=== PATIENT | female | born 1995 | race Caucasian/White ===

== ENCOUNTER 2024-10-06 12:56 | Emergency (ER) | payer SELFPAY ==
[2024-10-06 13:50] LABS: Specific Gravity 1.025 (1.005-1.030)
[2024-10-06 13:52] LABS: Specific Gravity 1.025 (1.005-1.030); Sqamous Epithelial <5 /HPF (None Seen); Urine Bacteria <20 /HPF (<20); Urine Bilirubin NEGATIVE (Negative); Urine Blood Negative (Negative); Urine Clarity Turbid (Clear); Urine Color Yellow (Yellow); Urine Culture Reflex Order NOT NEEDED; Urine Glucose NEGATIVE (Negative); Urine Ketones NEGATIVE (Negative); Urine Microscopic Reflex YN ORDER UMIC; Urine Mucus 1+ /HPF (None Seen); Urine Nitrite NEGATIVE (Negative); Urine Protein TRACE (Negative); Urine RBC <5 /HPF (None Seen); Urine Urobilinogen Normal (Normal); Urine WBC <5 /HPF (<5)
[2024-10-06 14:13] LABS: Absolute Basophils 0.1 K/uL (0-0.5); Absolute Eosinophils 0.1 K/uL (0-0.5); Absolute Lymphocytes (CBC) 1.6 K/uL (0.7-4.9); Absolute Monocytes 0.4 K/uL (0.1-1.3); Basophils % 0.6 % (0-1.3); Eosinophils % 1.3 % (0-4.4); Hematocrit 38.3 % (36.0-45.0); Lymphocytes % 17.6 % (15.3-44.8); MCH 30.9 pg (27.0-35.0); MCV 90.7 fL (80-100); MPV 7.3 fL (7.6-11.3); Monocytes % 4.3 % (3.3-12.3); Neutrophils % 76.2 % (41.7-73.7); Nucleated Red Blood Cells % 0.1 % (0-0); Platelets 324 thou/uL (152-406); RBC Red Blood Cell Count 4.22 M/uL (3.86-4.86); Red Cell Distribution Width 13.6 % (12.1-15.2)
[2024-10-06] MEDS ORDERED: NA CHLORIDE 0.9% 1,000 ML ONE (14:20)
[2024-10-06] MEDS ORDERED: ONDANSETRON 4 MG/2 ML VIAL ONE (14:20)
[2024-10-06 14:35] LABS: Albumin 3.3 g/dL (3.4-5.0); Albumin/Globulin Ratio 0.9 (1.1-1.8); Anion Gap 10.6 mEq/L (5.0-15.0); Bilirubin Total 0.3 mg/dL (0.2-1.0); Globulin 3.7 g/dL (2.3-3.5); Potassium 3.6 mEq/L (3.5-5.1)
[2024-10-06 14:43] LABS: Thyroid Stimulating Hormone 74.6 uIU/mL (0.358-3.740)
--- NOTE | 2024-10-06 15:46 | RAD REPORT ---
EXAMINATION: Transvaginal OB COMPARISON: None. HISTORY: ABD CRAMPING, TECHNIQUE: Real-time ultrasound was performed through the pelvis. A transvaginal scan was performed t o better visualize the intrauterine contents and adnexa. FINDINGS: The uterus measures 7.8 x 4.5 x 4.4 cm. Endometrium appears mildly thickened measuring 10 mm without IUP seen. Both ovaries are visualized and appear unremarkable. Mild pelvic free fluid. IMPRESSION: Thickened endometrial stripe measuring up to 10 mm without evidence of IUP. In the setting of a positive hCG level, this would indicate of unknown location. Serial hCG level measurements and follow-up pelvic sonography in 7-10 days would be recommended.
--- NOTE | 2024-10-06 15:49 | EDPHYS ---
Physician Documentation [facility] Name: Rosales Conley Age: 29 yrs Sex: Female : 1995 Arrival Date: 10/06/2024 Time: 12:56 Bed 9 Private MD: ED Physician Tucker Yo HPI: 10/06 13:07 This 29 yrs old Female presents to ER via Ambulatory with complaints of Abdominal Pain, sb4 Nausea/Vomiting. 13:07 Patient reports intermittent lower abdominal pain with nausea and vomiting x 1 week. sb4 Additionally, she states that she has been feeling lightheaded and like her vision has been blurry. Denies any fever or diarrhea. Does endorse some constipation. Denies any dysuria but states she feels "pressure "down there. Is not sure about , states she had a miscarriage in July. Historical: - Allergies: 13:05 benzicaine; ll1 13:05 Vagisil; ll1 - Home Meds: 13:05 levothyroxine oral [Active]; ll1 - PMHx: 13:05 Hypothyroidism; celiac; ll1 - PSHx: 13:05 section; ll1 - Immunization history:: Adult Immunizations up to date. - Social history:: Smoking status: Patient denies any tobacco usage or history of. ROS: 13:07 Constitutional: Negative for fever, chills, and weight loss, sb4 13:07 Abdomen/GI: Positive for abdominal pain, nausea and vomiting, diarrhea, 13:07 Neuro: Positive for dizziness, weakness, 13:07 All other systems are negative, Exam: 13:11 Constitutional: This is a well developed, well nourished patient who is awake, alert, sb4 and in no acute distress. Head/Face: Normocephalic, atraumatic. Eyes: Extra-ocular motions intact. Periorbital areas with no swelling, redness, or edema. ENT: Mucous membranes moist. Cardiovascular: Regular rate and rhythm with a normal S1 and S2. Respiratory: No increased work of breathing, no retractions or nasal flaring. Abdomen/GI: Soft, non-tender, no distension. Skin: Warm, dry with normal turgor. Normal color with no rashes, no lesions, and no evidence of cellulitis. MS/ Extremity: Pulses equal, no cyanosis. Neurovascular intact. Full, normal range of motion. Neuro: Awake and alert, GCS 15, oriented to person, place, time, and situation. Motor strength 5/5 in all extremities. Sensory grossly intact. Vital Signs: 13:04 BP 114 / 81; Pulse 73; Resp 17; Temp 97.8; Pulse Ox 100% ; Weight 75.75 kg; Height 5 ll1 ft. 1 in. ; Pain 5/10; 13:04 Body Mass Index 31.55 (75.75 kg, 154.94 cm) ll1 13:04 Pain Scale: Adult ll1 MDM: 13:02 Medical Screening Exam initiated sb4 13:11 Differential diagnosis: non-specific abd pain, urinary tract infection, flu, covid, IUP.sb4 15:05 ED course: UPT is positive, hcg is 48. will obtain US due to the lower abdominal pain. sb4 TSH is also very elevated, she reports compliance with her levothyroxine- 75 mcg- and has dependable follow up. will increase her dosage today and she will follow up with her PCP in 4 weeks for follow up blood work. 15:48 Data reviewed: vital signs, nurses notes, lab test result(s), radiologic studies, and sb4 as a result, I will discharge patient. Counseling: I had a detailed discussion with the patient and/or guardian regarding the historical points, exam findings, and any diagnostic results supporting the discharge/admit diagnosis, lab results, radiology results, the need for outpatient follow up, for definitive care, an OB/Gyne specialist, to return to the emergency department if symptoms worsen or persist or if there are any questions or concerns that arise at home. 10/06 13:07 Order name: CBC with Diff; Complete Time: 14:17 sb4 10/06 13:07 Order name: CMP; Complete Time: 14:58 sb4 10/06 13:07 Order name: Lipase; Complete Time: 14:58 sb4 10/06 13:07 Order name: Test, Urine; Complete Time: 13:51 sb4 10/06 13:07 Order name: Urinalysis w/ reflexes; Complete Time: 13:53 sb4 10/06 13:07 Order name: TSH; Complete Time: 14:58 sb4 10/06 14:03 Order name: HCG, Quantitative; Complete Time: 14:58 EDMS 10/06 14:45 Order name: T4 Free; Complete Time: 14:58 EDMS 10/06 15:05 Order name: Transvaginal OB US; Complete Time: 15:46 sb4 10/06 13:07 Order name: IV Saline Lock; Complete Time: 13:49 sb4 10/06 13:07 Order name: Labs collected and sent; Complete Time: 13:49 sb4 Administered Medications: 13:53 CANCELLED (Physician Discretion): TORadol - [id number] mg IVP once sb4 14:31 Drug: Ondansetron IVP 4 mg IVP once; over 2 minutes Route: IVP; Site: right antecubital;jb4 15:58 Follow up: Response: No adverse reaction; Marked relief of symptoms jb4 14:31 Drug: NS 0.9% IV 1000 ml IV at 1 bolus Per protocol; to be given as a bolus over 60 jb4 minutes Route: IV; Rate: 1 bolus; Site: right antecubital; 15:58 Follow up: Response: No adverse reaction; IV Status: Pt discharged; IV Intake: 600ml jb4 Disposition Summary: 10/06/24 15:48 Discharge Ordered Notes: Location: Home sb4 Problem: new sb4 Symptoms: have improved sb4 Condition: Stable sb4 Diagnosis - Hypothyroidism, unspecified sb4 - Less than 8 weeks gestation of sb4 Followup: sb4 - With: Emergency Department - When: As needed - Reason: Trouble breathing, Worsening of condition Followup: sb4 - With: Private Physician - When: 4 weeks - Reason: thyroid panel Discharge Instructions: - Discharge Summary Sheet sb4 - Hypothyroidism sb4 - Care sb4 Forms: - Patient Portal Instructions sb4 - Leadership Thank You Letter sb4 Prescriptions: - Levothyroxine 100 mcg Oral Tablet - take 1 tablet ORAL route once daily take 30 minutes before breakfast; 20 sb4 tablet; Refills: 0, Product Selection Permitted Signatures: Dispatcher [employer] Skyler Batista RN RN jb4 Lucero Duncan RN RN ll1 Fatoumata Veronica PA-C PAJovanny sb4 Corrections: (The following items were deleted from the chart) 13:53 13:07 TORadol - Ketorolac IVP 15 mg IVP once ordered. sb4 sb4 14:03 13:52 QUANTITATIVE HCG+C.LAB.BRZ ordered. EDMS EDMS 14:07 13:07 Abdomen Pelvis W Con+CT.RAD.BRZ ordered. EDMS EDMS
--- NOTE | 2024-10-06 15:49 | ER ---
Nurse's Notes [facility] Name: Rosales Conley Age: 29 yrs Sex: Female : 1995 Arrival Date: 10/06/2024 Time: 12:56 Bed 9 Private MD: Diagnosis: Hypothyroidism, unspecified;Less than 8 weeks gestation of Presentation: 10/06 13:04 Chief complaint: Patient states: Abdominal pain, nausea, light headed for 1 week. ll1 Coronavirus screen: Client denies travel out of the [place] in the last 14 days. At this time, the client does not indicate any symptoms associated with coronavirus-19. Ebola Screen: Patient denies travel to an Ebola-affected area in the 21 days before illness onset. Initial Sepsis Screen: Does the patient meet any 2 criteria? No. Patient's initial sepsis screen is negative. Does the patient have a suspected source of infection? No. Patient's initial sepsis screen is negative. Risk Assessment: Do you want to hurt yourself or someone else? Patient reports no desire to harm self or others. Onset of symptoms was September 29, 2024. 13:04 Method Of Arrival: Ambulatory 1 13:04 Acuity: DANA 3 ll1 Triage Assessment: 13:05 General: Appears uncomfortable, Behavior is calm, cooperative, appropriate for age. ll1 Pain: Complains of pain in abdomen Quality of pain is described as aching, crampy. GI: Reports lower abdominal pain, upper abdominal pain, constipation, nausea, vomiting. Historical: - Allergies: 13:05 benzicaine; ll1 13:05 Vagisil; ll1 - Home Meds: 13:05 levothyroxine oral [Active]; ll1 - PMHx: 13:05 Hypothyroidism; celiac; ll1 - PSHx: 13:05 section; ll1 - Immunization history:: Adult Immunizations up to date. - Social history:: Smoking status: Patient denies any tobacco usage or history of. Screenin:56 [facility] ED Fall Risk Assessment (Adult) History of falling in the last 3 months, jb4 including since admission No falls in past 3 months (0 pts) Confusion or Disorientation No (0 pts) Intoxicated or Sedated No (0 pts) Impaired Gait No (0 pts) Mobility Assist Device Used No (0 pt) Altered Elimination No (0 pt) Score/Fall Risk Level 0 - 2 = Low Risk Oriented to surroundings, Maintained a safe environment. Abuse screen: Denies threats or abuse. Nutritional screening: No deficits noted. Tuberculosis screening: No symptoms or risk factors identified. Assessment: 14:16 Reassessment: Patient and/or family updated on plan of care and expected duration. Pain ll1 level reassessed. 15:56 Reassessment: Patient appears in no apparent distress at this time. Patient and/or jb4 family updated on plan of care and expected duration. Pain level reassessed. Patient is alert, oriented x 3, equal unlabored respirations, skin warm/dry/pink. Vital Signs: 13:04 BP 114 / 81; Pulse 73; Resp 17; Temp 97.8; Pulse Ox 100% ; Weight 75.75 kg; Height 5 ll1 ft. 1 in. ; Pain 5/10; 13:04 Body Mass Index 31.55 (75.75 kg, 154.94 cm) ll1 13:04 Pain Scale: Adult ll1 ED Course: 13:00 Patient arrived in ED. al6 13:00 Fatoumata Veronica PA-C is PHCP. sb4 13:00 Tucker Yo MD is Attending Physician. sb4 13:05 Triage completed. ll1 13:07 Arm band placed on. ll1 13:17 Test, Urine Sent. bc6 13:17 Urinalysis w/ reflexes Sent. bc6 13:49 TSH Sent. bc6 13:49 CBC with Diff Sent. bc6 13:49 CMP Sent. bc6 13:49 Lipase Sent. bc6 13:49 Initial lab(s) drawn, by mn, sent to lab. Inserted saline lock: 20 gauge in right bc6 antecubital area, using aseptic technique. Blood collected. Flushed with 10 mL NS. 14:15 Patient placed in an exam room, on a stretcher. ll1 15:42 Transvaginal OB US In Process Unspecified. EDMS 15:56 Skyler Heath, RN is Primary Nurse. jb4 15:56 Patient has correct armband on for positive identification. Bed in low position. Call jb4 light in reach. Side rails up X 1. Provided Education on: discharge instructions.. 15:56 No provider procedures requiring assistance completed. IV discontinued, intact, jb4 bleeding controlled, No redness/swelling at site. Pressure dressing applied. Administered Medications: 13:53 CANCELLED (Physician Discretion): TORadol - [id number] mg IVP once sb4 14:31 Drug: Ondansetron IVP 4 mg IVP once; over 2 minutes Route: IVP; Site: right antecubital;jb4 15:58 Follow up: Response: No adverse reaction; Marked relief of symptoms jb4 14:31 Drug: NS 0.9% IV 1000 ml IV at 1 bolus Per protocol; to be given as a bolus over 60 jb4 minutes Route: IV; Rate: 1 bolus; Site: right antecubital; 15:58 Follow up: Response: No adverse reaction; IV Status: Pt discharged; IV Intake: 600ml jb4 Medication: 15:56 VIS not applicable for this client. jb4 Intake: 15:58 IV: 600ml; Total: 600ml. jb4 Outcome: 15:48 Discharge ordered by MD. sb4 15:56 Discharged to home ambulatory, jb4 15:56 Condition: stable 15:56 Discharge instructions given to patient, Instructed on discharge instructions, follow up and referral plans. medication usage, Demonstrated understanding of instructions, follow-up care, medications, Prescriptions given X 1, 15:59 Patient left the ED. jb4 Signatures: Dispatcher [employer] EDMS Skyler Heath RN RN jb4 Lucero Duncan RN RN ll1 Fatoumata Veronica, PA-C PA-C sb4 Karey Singh bc6 Pilar Willis6 Corrections: (The following items were deleted from the chart) 13:07 13:04 BP 114 / 81; Pulse 73bpm; Resp 17bpm; Pulse Ox 100%; Temp 97.8F; Pain 5/10, ll1 Adult; ll1
[2024-10-06 18:51] VITALS: BP 114/81; TEMP 97.8; O2SAT 100
== END 2024-10-06 15:59 | disposition home or self-care (01) ==
LOC: ER 12:56
DX: O99.281 Endocrine, nutritional and metabolic diseases complicating pregnancy, first trimester (principal); E03.9 Hypothyroidism, unspecified; Z3A.08 8 weeks gestation of pregnancy
CPT/HCPCS: 36415; 76817; 80053; 81001; 81025; 83690; 84439; 84443; 84702; 85025; J2405; J7030